=== PATIENT | male | born 1955 | race Caucasian/White ===

== ENCOUNTER 2017-06-15 06:04 | Day surgery (SDC) | payer MEDICARE, OTHER ==
[2017-06-15] VITALS (7 sets, daily range): BP systolic 131–147; BP diastolic 85–96; PULSE 57–71; RESP 16–20; TEMP 97.6–98.2; O2SAT 96–97
[~2017-06-15] VITALS: Ht 167.6 cm; Wt 63.6 kg
[2017-06-15] MEDS ORDERED: GABA300C5 PO (06:39)
[2017-06-15] MEDS ORDERED: SIMV40TA PO (06:39)
[2017-06-15] MEDS ORDERED: ZOLP10TA3 PO (06:39)
[2017-06-15] MEDS ORDERED: LEVO50TA4 PO (06:39)
[2017-06-15] MEDS ORDERED: PANC3600 PO (06:39)
[2017-06-15] MEDS ORDERED: LEVEMIR SQ (06:44)
[2017-06-15] MEDS ORDERED: NOVOLOGP2 SQ (06:44)
[2017-06-15 07:12] LABS: AUTOMATED NEUTROPHIL # 3.4 TH/MM3 (1.8-7.7); BASOPHIL # 0.1 TH/MM3 (0-0.2); BASOPHIL % 1.3 % (0.0-2.0); EOSINOPHIL # 1.1 TH/MM3 (0-0.4); EOSINOPHIL % 17.8 % (0.0-4.0); HEMO FLAGS DIFF FINAL; LYMPH % 19.8 % (9.0-44.0); LYMPHOCYTE # 1.2 TH/MM3 (1.0-4.8); MEAN CELL VOLUME 92.4 FL (80.0-100.0); MEAN CORPUSCULAR HEMOGLOBIN 29.8 PG (27.0-34.0); MEAN CORPUSCULAR HGB CONC 32.3 % (32.0-36.0); MONO % 6.5 % (0.0-8.0); NEUT % 54.6 % (16.0-70.0); PLATELET COUNT 478 TH/MM3 (150-450); RED BLOOD COUNT 4.22 MIL/MM3 (4.50-5.90); RED CELL DISTRIBUTION WIDTH 14.4 % (11.6-17.2); WHITE BLOOD COUNT 6.1 TH/MM3 (4.0-11.0)
[2017-06-15 07:15] LABS: APTT (PATIENT) 24.7 SEC (24.3-30.1); PROTHROMBIN TIME - PATIENT 10.8 SEC (9.8-11.6)
[2017-06-15] MEDS ORDERED: POVIDONE IODINE 5% (ANTISEPSIS KIT) 4 APPLICATIONS EACH NARE SCH (07:30)
[2017-06-15] MEDS ORDERED: ceFAZolin 2 GM PREMIX 50 ML - implanted port/tunneled catheter insertion IV SCH (07:30)
[2017-06-15] MEDS ORDERED: SODIUM CHLORIDE 0.9% 1000 ML IV SCH (07:30)
[2017-06-15] MEDS ORDERED: CHLORHEXIDINE GLUCONATE 2 % 1 PACK (2 CLOTHS) TOPICAL SCH (07:30)
[2017-06-15] MEDS ORDERED: VANCOMYCIN 1000 MG/NS 250 ML - implanted port/tunneled catheter IV SCH ×2 (07:30)
[2017-06-15] MEDS ORDERED: MIDAZOLAM HCL 5 MG/5 ML VIAL ONE (07:52)
--- NOTE | 2017-06-15 09:51 | PD.RAD ---
Post Procedure Progress Note Pre Procedure Diagnosis: (1) Pancreatic cancer Post Procedure Diagnosis: (1) Pancreatic cancer Procedure Date: Jun 15, 2017 Supervising Radiologist: Damion Bassett Proceduralist/Assist: Bg Chowdhury RT(R) Estimated blood loss: 10 ml Anesthesia: Local, Conscious Sedation Plan of Activity Patient to Unit: ROPU Patient Condition: Good See PACS Report for procedural detail/treatment Central Venous Access Device Procedure 1 Right Internal Jugular Infusaport Placement single lumen Turkish: 8 Damion Bassett MD Jun 15, 2017 09:51
[2017-06-15] MEDS ORDERED: SODIUM CHLORIDE 0.9% FLUSH 10 ML FLUSH IVF PRN (10:00)
--- NOTE | 2017-06-15 10:57 | RADRPT ---
EXAM DATE/TIME: 06/15/2017 08:22 [facility] COMPARISON: No previous studies available for comparison. INDICATIONS : Patient presents with Pancreatic cancer in need of port placement for chemotherapy treatment. MEDICAL HISTORY : Pancreatic cancer with mets Arthritis Diabetes Kidney stones. SURGICAL HISTORY : Appendectomy Cholecystectomy Hip surgery Pancreatectomy. ENCOUNTER: Initial ACUITY: 1 month PAIN SCORE: 0/10 LOCATION: N/A FLUORO TIME: 0.4 minutes IMAGE SERIES: 0 SEDATION TIME: 30 minutes ACCESS: Right internal jugular vein SEDATION: 1.) 3 mg midazolam (Versed) IV 2.) 150 mcg fentanyl (Sublimaze) IV Prophylactic antibiotics were administered with appropriate pre-procedure timing. Vancomycin within 2 hours of procedure, Ancef (or alternative) within 1 hour of procedure. DEVICE: 1. [address] Frisian single lumen Smart port ct w/vortex PROCEDURE : 1. Continuous pulse oximetry and EKG monitoring. 2. Intravenous conscious sedation. 3. Ultrasound guidance for venous access. 4. Fluoroscopic guided implantable central venous port placement. The patient was placed supine. The neck was prepped in sterile fashion. Full sterile technique was u sed, including cap, mask, sterile gloves and gown, and a large sterile sheet. Hand hygiene and 2% ch lorhexidine Betadine was utilized per protocol for cutaneous antisepsis with appropriate dry time for site. Sterile gel and sterile probe cover were utilized for ultrasound guidance. The skin and sub cutaneous tissues were infiltrated with local anesthetic solution. Under direct ultrasound guidance, central venous access was accomplished in the targeted vessel. The ultrasound images depicting access guidance were stored and saved to PACS for permanent record. A s ubcutaneous pocket was created using blunt dissection. The port was introduced to the pocket. The c atheter tubing was fed through a subcutaneous tunnel to the venotomy site. The catheter tubing was c ut to a suitable length and then was introduced through a valved Peel-Away sheath and positioned with catheter tubing tip at the cavo-atrial junction level. The pocket incision was closed with subcutic ular Vicryl suture. Steri-Strips were applied. The port was flushed and locked with heparin solutio n per protocol. Sterile dressing was applied to the site. The patient tolerated the procedure well. Conscious sedation was performed with the prescribed dosages and duration as above in the presence of an independent trained radiology nurse to assist in the monitoring of the patient. EKG and oximetry remained stable throughout the procedure. The patient tolerated the procedure well and there were no complications. The patient was sent to post anesthesia recovery in stable condition. CONCLUSION: Uncomplicated ultrasound and fluoroscopic guided implanted central venous port catheter placement as described in detail above. An 8 Frisian Power port was placed. Damion Bassett MD on June 15, 2017 at 10:56 Board Certified Radiologist. This report was verified electronically.
== END 2017-06-15 11:00 | disposition home or self-care (01) ==
LOC: HROP 06:04 → HRIP 06:07 → HROP 11:00
PROVIDERS: ATTEND Internal Medicine
DX: C25.9 Malignant neoplasm of pancreas, unspecified (principal); E11.9 Type 2 diabetes mellitus without complications; M19.90 Unspecified osteoarthritis, unspecified site; Z87.442 Personal history of urinary calculi; Z79.4 Long term (current) use of insulin; Z79.899 Other long term (current) drug therapy
CPT/HCPCS: 36561; 76937; 77001; 82948; 85025; 85610; 85730; 99152; 99153; C1788; J0690; J1642; J2250; J3010; J3370; J7030; J7050

== ENCOUNTER 2018-01-17 12:16 | Emergency (ER) | payer MEDICARE, OTHER ==
[~2018-01-17 12:16] MED LIST: GABA300C5 PO; LEVEMIR SQ; LEVO50TA4 PO; NOVOLOGP2 SQ; PANC3600 PO; SIMV40TA PO; ZOLP10TA3 PO
[2018-01-17 12:40] VITALS: BP 146/85; PULSE 68; RESP 20; TEMP 98.3; O2SAT 98
[2018-01-17 13:30] VITALS: BP 152/90; PULSE 54; RESP 16; O2SAT 98
[2018-01-17] MEDS ORDERED: SODIUM CHLORIDE 0.9% FLUSH 10 ML FLUSH IVF PRN (13:30)
--- NOTE | 2018-01-17 13:35 | PD ---
HPI Chief Complaint: Cardiac Complaint Time Seen by Provider: 13:14 Travel History International Travel<30 days: No Contact w/Intl Traveler<30days: No Traveled to known affect area: No History of Present Illness HPI 62-year-old male with a history of a Whipple procedure, single kidney, presents emergency department for evaluation of lower midsternal pain that began 45 minutes after eating breakfast today. Patient states that the sensation feels like "somebody is sitting on his chest". Says the pain initially was 5/6 out of 10 however now it is 4 out of 10. The patient states that the pain started about 930 this morning and is gradually improving. Denies radiation of pain. Says that he has had this sensation for approximately 2 weeks but finally decided to go to the hospital in [place] 1 week ago where he had a stress test, which was normal. Patient said he called his oncologist, Dr. Smith who recommended he come to the emergency department for evaluation. Patient states that he believes this may be a little bit of nerves. Says he had a similar episode last that occurred approximately 1 hour after eating. Again a previous episode occurred 2 hours after playing pickle ball 2 weeks ago. He denies any shortness of breath, dizziness, nausea, vomiting. Denies use of tobacco or alcohol. PFSH Past Medical History Cancer: Yes Cardiovascular Problems: No Diabetes: Yes Endocrine: No Hepatitis: No Hiatal Hernia: No Immune Disorder: No Musculoskeletal: No Psychiatric: Yes Reproductive: No Respiratory: No Thyroid Disease: Yes Past Surgical History Abdominal Surgery: Yes AICD: No Cardiac Surgery: No Endocrine Surgery: Yes (Pancreas) Genitourinary Surgery: No Gynecologic Surgery: No Joint Replacement: Yes Pacemaker: No Thoracic Surgery: No Social History Tobacco Use: No Allergies-Medications (Allergen,Severity, Reaction): Coded Allergies: promethazine (Verified Allergy, Unknown, 06/15/17) Reported Meds & Prescriptions Reported Meds & Active Scripts Active Pantoprazole (Pantoprazole Sodium) 20 Mg Tab 20 Mg PO DAILY 14 Days Reported Cozaar (Losartan Potassium) 100 Mg Tab 100 Mg PO HS Tresiba Flextouch Pen Inj (Insulin Degludec Inj) 300 unit/3 ML Pen 14 Units SQ DAILY Novolog Inj (Insulin Aspart) 1,000 Unit/10 Ml Vial SQ ACHS Inject 1 unit for every 15-20 carbs with meals & snacks Zolpidem (Zolpidem Tartrate) 10 Mg Tab 10 Mg PO HS PRN Creon (Pancrelipase) 36,000-114,000-180,000 Units Cap 1 Cap PO TIDPC Simvastatin 40 Mg Tab 40 Mg PO HS Levothyroxine (Levothyroxine Sodium) 50 Mcg Tab 50 Mcg PO DAILY Gabapentin 300 Mg Cap 300 Mg PO BID Review of Systems Except as stated in HPI: all other systems reviewed are Neg Physical Exam Narrative GENERAL: Well developed, well-nourished, thin male appears stated age in no acute distress SKIN: Focused skin assessment warm/dry. HEAD: Atraumatic. Normocephalic. EYES: Pupils equal and round. No scleral icterus. No injection or drainage. ENT: No nasal bleeding or discharge. Mucous membranes pink and moist. NECK: Trachea midline. No JVD. No lymphadenopathy CARDIOVASCULAR: Regular rate and rhythm. No murmur appreciated. RESPIRATORY: No accessory muscle use. Clear to auscultation. Breath sounds equal bilaterally. GASTROINTESTINAL: Abdomen soft, mildly tender to palpation in the lower sternal and upper epigastric region. No masses organomegaly. Midline scar well- healed. An insulin pump is attached to the right lower quadrant. No CVA tenderness. MUSCULOSKELETAL: No obvious deformities. No clubbing. No cyanosis. No edema. Chest pain not reproducible with pain NEUROLOGICAL: Awake and alert. No obvious cranial nerve deficits. Motor grossly within normal limits. Normal speech. PSYCHIATRIC: Appropriate mood and affect; insight and judgment normal. Data Data Last Documented VS Vital Signs Date Time Temp Pulse Resp B/P (MAP) Pulse Ox O2 Delivery O2 Flow Rate FiO2 01/17/18 15:25 51 18 152/86 (108) 99 01/17/18 13:13 Room Air 01/17/18 12:40 98.3 Orders Orders Electrocardiogram (01/17/18 ) Chest, Pa & Lat (01/17/18 ) Ckmb (Isoenzyme) Profile (01/17/18 13:28) Complete Blood Count With Diff (01/17/18 13:28) Comprehensive Metabolic Panel (01/17/18 13:28) D-Dimer (01/17/18 13:28) Magnesium (Mg) (01/17/18 13:28) Prothrombin Time / Inr (Pt) (01/17/18 13:28) Act Partial Throm Time (Ptt) (01/17/18 13:28) Troponin I (01/17/18 13:28) Lipase (01/17/18 13:28) Ecg Monitoring (01/17/18 13:28) Iv Access Insert/Monitor (01/17/18 13:28) Oximetry (01/17/18 13:28) Sodium Chloride 0.9% Flush (Ns Flush) (01/17/18 13:30) CKMB (01/17/18 13:39) CKMB% (01/17/18 13:39) Ed Discharge Order (01/17/18 14:55) Labs Laboratory Tests Test 01/17/18 13:39 White Blood Count 4.3 TH/MM3 Red Blood Count 4.19 MIL/MM3 Hemoglobin 13.0 GM/DL Hematocrit 39.9 % Mean Corpuscular Volume 95.3 FL Mean Corpuscular Hemoglobin 31.1 PG Mean Corpuscular Hemoglobin Concent 32.7 % Red Cell Distribution Width 16.7 % Platelet Count 313 TH/MM3 Mean Platelet Volume 8.8 FL Neutrophils (%) (Auto) 60.2 % Lymphocytes (%) (Auto) 24.0 % Monocytes (%) (Auto) 7.3 % Eosinophils (%) (Auto) 5.4 % Basophils (%) (Auto) 3.1 % Neutrophils # (Auto) 2.6 TH/MM3 Lymphocytes # (Auto) 1.0 TH/MM3 Monocytes # (Auto) 0.3 TH/MM3 Eosinophils # (Auto) 0.2 TH/MM3 Basophils # (Auto) 0.1 TH/MM3 CBC Comment DIFF FINAL Differential Comment Prothrombin Time 11.3 SEC Prothromb Time International Ratio 1.1 RATIO Activated Partial Thromboplast Time 25.4 SEC D-Dimer Quantitative (PE/DVT) 0.31 MG/L FEU Blood Urea Nitrogen 34 MG/DL Creatinine 0.84 MG/DL Random Glucose 91 MG/DL Total Protein 7.2 GM/DL Albumin 4.0 GM/DL Calcium Level 9.0 MG/DL Magnesium Level 2.2 MG/DL Alkaline Phosphatase 102 U/L Aspartate Amino Transf (AST/SGOT) 61 U/L Alanine Aminotransferase (ALT/SGPT) 84 U/L Total Bilirubin 0.7 MG/DL Sodium Level 138 MEQ/L Potassium Level 4.7 MEQ/L Chloride Level 103 MEQ/L Carbon Dioxide Level 28.0 MEQ/L Anion Gap 7 MEQ/L Estimat Glomerular Filtration Rate 92 ML/MIN Total Creatine Kinase 113 U/L Creatine Kinase MB 1.2 NG/ML Troponin I LESS THAN 0.02 NG/ML Lipase 22 U/L MDM Medical Decision Making Medical Screen Exam Complete: Yes Emergency Medical Condition: Yes Differential Diagnosis ACS, atypical chest pain, duodenitis, gastritis Narrative Course 62-year-old male with a history of a Whipple procedure, single kidney, presents emergency department for evaluation of lower midsternal pain that began 45 minutes after eating breakfast today. Patient states that the sensation feels like "somebody is sitting on his chest". Says the pain initially was 5/6 out of 10 however now it is 4 out of 10. The patient states that the pain started about 930 this morning and is gradually improving. Denies radiation of pain. Says that he has had this sensation for approximately 2 weeks but finally decided to go to the hospital in [place] 1 week ago where he had a stress test, which was normal. Patient said he called his oncologist, Dr. Smith who recommended he come to the emergency department for evaluation. Patient states that he believes this may be a little bit of nerves. Says he had a similar episode last that occurred approximately 1 hour after eating. Again a previous episode occurred 2 hours after playing pickle ball 2 weeks ago. He denies any shortness of breath, dizziness, nausea, vomiting. Denies use of tobacco or alcohol. Vital signs are stable. CBC & BMP Diagram 01/17/18 13:39 Total Protein 7.2, Albumin 4.0, Calcium Level 9.0, Magnesium Level 2.2, Alkaline Phosphatase 102, Aspartate Amino Transf (AST/SGOT) 61 H, Alanine Aminotransferase (ALT/SGPT) 84 H, Total Bilirubin 0.7 Cardiac enzymes negative. D-dimer 0.31. Last Impressions Chest X-Ray 01/17/18 0000 Signed Impressions: Service Date/Time: , January 17, 2018 13:49 - CONCLUSION: No acute disease. Biapical scarring. Prosper Art MD I discussed the findings with the patient and . Advised that since patient had a stress test 1 week ago which was normal, it is reassuring. Based off of history and physical, I am comfortable discharging this patient for outpatient follow-up with a gastrointestinal physician and measurement and verification engineer. As patient was leaving, says he had a fruit cup and about 30 minutes after he consumed this he began having similar pain. Patient agrees that his pain is actually gastritis. Patient will be discharged with pantoprazole. Says that he will be following up at the [facility] within the next week regarding his Whipple surgery. Diagnosis Primary Impression: Gastritis Qualified Codes: K29.60 - Other gastritis without bleeding Referrals: [facility] Additional Instructions: Avoid spicy foods or other foods that may cause your stomach pain. Avoid high acid foods to reduce your symptoms. Take medications daily. Scripts Pantoprazole (Pantoprazole) 20 Mg Tab 20 MG PO DAILY for Reflux for 14 Days, #14 TAB 0 Refills Prov: Jaimee Casey MD 01/17/18 Disposition: 01 DISCHARGE HOME Condition: Stable Kim Bryant Jan 17, 2018 13:35
[2018-01-17] MEDS ORDERED: INSU1INJ14 SQ (13:41)
[2018-01-17] MEDS ORDERED: COZA100T PO (13:41)
[2018-01-17 13:55] LABS: AUTOMATED NEUTROPHIL # 2.6 TH/MM3 (1.8-7.7); BASOPHIL # 0.1 TH/MM3 (0-0.2); BASOPHIL % 3.1 % (0.0-2.0); EOSINOPHIL # 0.2 TH/MM3 (0-0.4); EOSINOPHIL % 5.4 % (0.0-4.0); HEMATOCRIT 39.9 % (39.0-51.0); MEAN CELL VOLUME 95.3 FL (80.0-100.0); MEAN CORPUSCULAR HEMOGLOBIN 31.1 PG (27.0-34.0); MEAN CORPUSCULAR HGB CONC 32.7 % (32.0-36.0); MEAN PLATELET VOLUME 8.8 FL (7.0-11.0); MONO % 7.3 % (0.0-8.0); MONOCYTE # 0.3 TH/MM3 (0-0.9); NEUT % 60.2 % (16.0-70.0); PLATELET COUNT 313 TH/MM3 (150-450); RED BLOOD COUNT 4.19 MIL/MM3 (4.50-5.90); RED CELL DISTRIBUTION WIDTH 16.7 % (11.6-17.2); WHITE BLOOD COUNT 4.3 TH/MM3 (4.0-11.0)
--- NOTE | 2018-01-17 13:55 | RADRPT ---
EXAM DATE/TIME: 01/17/2018 13:49 [facility] COMPARISON: No previous studies available for comparison. INDICATIONS : Chest pain today. MEDICAL HISTORY : Hypertension. Cancer: Pancreatic, kidney, and duodonal. SURGICAL HISTORY : Appendectomy. Cholecystectomy. Left nephrectomy. Pancreatectomy. Infusaport. ENCOUNTER: Initial ACUITY: 1 day PAIN SCORE: 4/10 LOCATION: Bilateral chest FINDINGS: PA and lateral views of the chest demonstrate the lungs to be symmetrically aerated without evidence of mass, infiltrate or effusion. Biapical scarring. Right-sided port with tip in SVC. The cardiomedi astinal contours are unremarkable. Osseous structures are intact. CONCLUSION: No acute disease. Biapical scarring. Prosper Art MD on January 17, 2018 at 13:52 Board Certified Radiologist. This report was verified electronically.
[2018-01-17 14:02] LABS: D-DIMER 0.31 MG/L FEU (0.00-0.50); INTERNATIONAL NORMALIZED RATIO 1.1 RATIO; PROTHROMBIN TIME - PATIENT 11.3 SEC (9.8-11.6)
--- NOTE | 2018-01-17 14:05 | PD ---
Physical Exam Date Seen by Provider: Jan 17, 2018 Narrative Patient presents complaining with chest pain. He reports chest discomfort which generally starts after eating. He has had 3 episodes within the last couple of weeks. He was actually evaluated for this at a hospital in [place] about a week ago. He had a negative echo and a negative stress test. Labs were also reportedly normal. Data Data Last Documented VS Vital Signs Date Time Temp Pulse Resp B/P (MAP) Pulse Ox O2 Delivery O2 Flow Rate FiO2 01/17/18 12:40 98.3 68 20 146/85 (105) 98 Orders Orders Electrocardiogram (01/17/18 ) Chest, Pa & Lat (01/17/18 ) Electrocardiogram (01/17/18 13:28) Ckmb (Isoenzyme) Profile (01/17/18 13:28) Complete Blood Count With Diff (01/17/18 13:28) Comprehensive Metabolic Panel (01/17/18 13:28) D-Dimer (01/17/18 13:28) Magnesium (Mg) (01/17/18 13:28) Prothrombin Time / Inr (Pt) (01/17/18 13:28) Act Partial Throm Time (Ptt) (01/17/18 13:28) Troponin I (01/17/18 13:28) Lipase (01/17/18 13:28) Ecg Monitoring (01/17/18 13:28) Iv Access Insert/Monitor (01/17/18 13:28) Oximetry (01/17/18 13:28) Sodium Chloride 0.9% Flush (Ns Flush) (01/17/18 13:30) Urinalysis - C+S If Indicated (01/17/18 13:47) Labs Laboratory Tests Test 01/17/18 13:39 White Blood Count 4.3 TH/MM3 Red Blood Count 4.19 MIL/MM3 Hemoglobin 13.0 GM/DL Hematocrit 39.9 % Mean Corpuscular Volume 95.3 FL Mean Corpuscular Hemoglobin 31.1 PG Mean Corpuscular Hemoglobin Concent 32.7 % Red Cell Distribution Width 16.7 % Platelet Count 313 TH/MM3 Mean Platelet Volume 8.8 FL Neutrophils (%) (Auto) 60.2 % Lymphocytes (%) (Auto) 24.0 % Monocytes (%) (Auto) 7.3 % Eosinophils (%) (Auto) 5.4 % Basophils (%) (Auto) 3.1 % Neutrophils # (Auto) 2.6 TH/MM3 Lymphocytes # (Auto) 1.0 TH/MM3 Monocytes # (Auto) 0.3 TH/MM3 Eosinophils # (Auto) 0.2 TH/MM3 Basophils # (Auto) 0.1 TH/MM3 CBC Comment DIFF FINAL Differential Comment Prothrombin Time 11.3 SEC Prothromb Time International Ratio 1.1 RATIO Activated Partial Thromboplast Time 25.4 SEC D-Dimer Quantitative (PE/DVT) 0.31 MG/L FEU MDM Supervised Visit with JUAN RAMON: Yes Interpretation(s) EKG shows a normal sinus rhythm with no acute ischemic change Narrative Course I, Dr. Casey, have reviewed the advance practice practitioner's documentation and am in agreement, met with the patient face to face, made the diagnosis, and the medical decision making was done by me. *My assessment and Findings: Patient is awake and alert and does not appear to be in any distress. The plan is to do baseline cardiac labs. If these are normal, he will be discharged with the recommendation to follow-up with the precision instrument maker. Please see Kim Bryant PA-C's note for further details, lab and radiology results, final diagnosis and disposition. Condition: Stable Jaimee Casey MD Jan 17, 2018 14:05
[2018-01-17 14:08] LABS: ALT (GPT) 84 U/L (12-78); AST (GOT) 61 U/L (15-37); BLOOD UREA NITROGEN 34 MG/DL (7-18); CHLORIDE 103 MEQ/L (98-107); CREATININE 0.84 MG/DL (0.60-1.30); GLOMERULAR FILTRATION RATE 92 ML/MIN (>89); GLUCOSE,RANDOM 91 MG/DL (74-106); MAGNESIUM 2.2 MG/DL (1.5-2.5); SODIUM (NA) 138 MEQ/L (136-145)
[2018-01-17 14:13] LABS: ALKALINE PHOSPHATASE 102 U/L (45-117); TOTAL BILIRUBIN ADULT 0.7 MG/DL (0.2-1.0); TOTAL PROTEIN 7.2 GM/DL (6.4-8.2); TROPONIN I LESS THAN 0.02 NG/ML (0.02-0.05)
[2018-01-17] MEDS ORDERED: PANT20TA2 PO (14:54)
[2018-01-17 15:25] VITALS: BP 152/86
--- NOTE | 2018-01-19 09:22 | EKG ---
Date Performed: 01/17/2018 Time Performed: 13:02:20 PTAGE: 62 years EKG: SINUS BRADYCARDIA BORDERLINE ECG NO PREVIOUS TRACING DOCTOR: Chasity Juarez Interpretating Date/Time 01/19/2018 09:16:55
== END 2018-01-17 15:29 | disposition home or self-care (01) ==
LOC: NEPC 12:16
DX: K29.70 Gastritis, unspecified, without bleeding (principal); E11.9 Type 2 diabetes mellitus without complications
CPT/HCPCS: 71046; 80053; 82550; 82552; 83690; 83735; 84484; 85025; 85379; 85610; 85730; 93005; 99285

== ENCOUNTER 2018-07-30 12:43 | Inpatient (IN) ==
--- NOTE | 2018-07-30 13:17 | ED ---
HPI General Chief complaint: Fever Stated complaint: Fever Time Seen by Provider: 07/30/18 13:01 History of Present Illness HPI narrative: 63-year-old male with a history of hypertension, hypothyroidism, renal cell carcinoma stage IV status post left nephrectomy, locally advanced pancreatic adenocarcinoma status post Whipple procedure, status post adjuvant chemotherapy last dose November 2017, diabetes with insulin pump status post Whipple, presents to the ED for evaluation of fever. Patient states that this morning around 10 AM he was outside playing golf when he suddenly felt as though he had chills. States that he has felt feverish since then. States he called his oncologist office and they told him to come in for evaluation. States that he was feeling fine when he woke up this morning. States he has been feeling well overall recently. He did travel to the [facility] recently and returned 4 days ago, he drove and did not fly. He denies any chest pain, shortness of breath, abdominal pain, nausea, vomiting, diarrhea, shortness of breath, cough or cold symptoms, dysuria. His states that she started having a sore throat today but otherwise no other sick contacts. No other complaints. Related Data Home Medications Medication Instructions Recorded Confirmed gabapentin 300 mg PO TID 07/30/18 07/30/18 insulin pump cartridge 07/30/18 07/30/18 levothyroxine 50 mcg PO DAILY 07/30/18 07/30/18 gobbei-gjuwgjzo-okedheb [Creon] 1 cap PO QID 07/30/18 07/30/18 lorazepam [Ativan] 0.5 mg PO BID 07/30/18 07/30/18 simvastatin 40 mg PO QPM 07/30/18 07/30/18 Allergies Allergy/AdvReac Type Severity Reaction Status Date / Time promethazine Allergy Unknown Hives Verified 07/30/18 12:54 fentanyl Allergy Lethargy Verified 07/30/18 12:54 Review of Systems ROS: all other systems reviewed are negative PMFSH Social History Social History Second Hand Smoke Exposure: No Smoking Status: Never smoker How Often Do You Have a Drink Containing Alcohol: Never Recent Travel in [facility] within the Last 8 Weeks: No Recent Out of Country Travel within the Last 8 Weeks: No Immunization History Tetanus Immunization: <5 Years Exam Narrative Exam Narrative: GENERAL: Well-nourished and well-developed pleasant patient in no acute distress who is nontoxic appearing. SKIN: Warm and dry without any obvious rashes or lesions. HEAD: Normocephalic and atraumatic. EYES: No injection, drainage, or hyphema noted. PERRLA. EOMI. ENT: No nasal drainage noted. Oropharynx is clear and the TMs are normal with good landmarks. NECK: Supple and the trachea is midline. No lymphadenopathy is noted throughout the cervical chains. CARDIOVASCULAR: Regular rate and rhythm. RESPIRATORY: Breath sounds are equal bilaterally with no accessory muscle use, wheezing, rhonchi, or crackles. GASTROINTESTINAL: Abdomen is soft, non-tender, and nondistended. MUSCULOSKELETAL: No obvious deformities, swelling, cyanosis, or ecchymosis is present throughout the upper and lower extremities. Patient has full range of motion without any signs of neurovascular compromise. Distal pulses are 2+ throughout. NEUROLOGICAL: Awake, alert, and oriented. Normal speech and gait. Cranial nerves are grossly intact. Course Initial Documented Vital Signs Temperature 100.9 F H 07/30/18 12:47 Pulse Rate 92 H 07/30/18 12:47 Respiratory Rate 17 07/30/18 12:47 Blood Pressure 172/85 H 07/30/18 12:47 Pulse Oximetry 99 07/30/18 12:47 Last Documented Vital Signs Temperature 101 F H 07/30/18 14:15 Pulse Rate 92 H 07/30/18 12:47 Respiratory Rate 17 07/30/18 12:47 Blood Pressure 172/85 H 07/30/18 12:47 Pulse Oximetry 99 07/30/18 12:47 Medical Decision Making JUAN RAMON Attestation JUAN RAMON supervised visit: Yes Attestation: Patient presents to the emergency department with fever and chills times 2 hours. Patient has a history of cancer. He denies dysuria, cough, chest pain, shortness of breath, rash, no sick contacts, but reports chronic body aches. Patient was given Tylenol 650 mg p.o. in the ER as well as 1 g of vancomycin and 3.375 g IV Zosyn. Workup did not identify source for the fever the patient has been admitted to the hospitalist for further evaluation and management. MDM Narrative Medical decision making narrative: 63-year-old male presents to the ED for evaluation of fever. Patient has a fever of 100.9 F and is tachycardic with a heart rate of 92 bpm. Otherwise vital signs are unremarkable. Physical examination is essentially unremarkable. He has no complaints other than fever and chills. IV access is obtained, labs of been drawn and sent. Patient is placed on cardiac telemetry and pulse oximetry monitoring. Patient is significantly immunocompromised with a history of cancer and status post pancreatectomy with diabetes. Patient administered antibiotics vancomycin 1 g and Zosyn 4.5 g IV. CBC is unremarkable, he does have increased neutrophil count. CMP shows hyperkalemia with potassium 5.3, otherwise unremarkable. Urinalysis shows small occult blood, trace leukocyte esterase and few mucus. Chest x-ray is negative for any acute abnormalities. Influenza swab is negative. Of note, patient's temperature increased to 102 shortly after arrival to his room. Administered oral tylenol. Work up so far is negative however this immunocompromised patient with fever will be kept in observation with IV antibiotics. Medical Screen Exam Complete: Yes Emergency Medical Condition: Yes Differential Diagnosis Differential Diagnosis: Viral syndrome versus influenza versus sepsis Lab Data Result diagrams: 07/30/18 13:45 07/30/18 13:45 Lab Results 07/30/18 07/30/18 07/30/18 Range/Units 13:45 13:45 13:45 WBC 10.0 (4.0-11.0) th/mm3 RBC 4.22 L (4.50-5.90) mil/mm3 Hgb 13.5 (13.0-17.0) gm/dL Hct 39.4 (39.0-51.0) % MCV 93.3 (80.0-100.0) fL MCH 31.9 (27.0-34.0) pg MCHC 34.3 (32.0-36.0) % RDW 14.5 (11.6-17.2) % Plt Count 266 (150-450) th/mm3 MPV 8.4 (7.0-11.0) fL Neut % (Auto) 91.5 H (16.0-70.0) % Lymph % (Auto) 4.1 L (9.0-44.0) % [place] % (Auto) 3.3 (0.0-8.0) % Eos % (Auto) 0.3 (0.0-4.0) % Baso % (Auto) 0.8 (0.0-2.0) % Neut # (Auto) 9.2 H (1.8-7.7) th/mm3 Lymph # (Auto) 0.4 L (1.0-4.8) th/mm3 [place] # (Auto) 0.3 (0.0-0.9) th/mm3 Eos # (Auto) 0.0 (0.0-0.4) th/mm3 Baso # (Auto) 0.1 (0.0-0.2) th/mm3 WBC Differential . Differential Comment Auto diff final Sodium 136 (136-145) meq/L Potassium 5.3 H (3.5-5.1) meq/L Chloride 100 (98-107) meq/L Carbon Dioxide 27.4 (21.0-32.0) meq/L Anion Gap 9 (5-15) meq/L BUN 34 H (7-18) mg/dL Creatinine 1.12 (0.60-1.30) mg/dL Estimated GFR 66 L (>89) mL/min Random Glucose 163 H (74-106) mg/dL Lactic Acid 1.0 (0.4-2.0) mmol/L Calcium 8.8 (8.5-10.1) mg/dL Total Bilirubin 1.4 H (0.2-1.0) mg/dL AST 45 H (15-37) U/L ALT 57 (12-78) U/L Alkaline Phosphatase 105 (45-117) U/L Total Protein 7.2 (6.4-8.2) g/dL Albumin 3.8 (3.4-5.0) g/dL Urine Color (Yellw/Straw) Urine Clarity (Clear) Urine pH (5.0-8.5) Ur Specific Lillian (1.002-1.035) Urine Protein (Neg-Trace) mg/dL Urine Glucose (UA) (Negative) mg/dL Urine Ketones (Negative) mg/dL Urine Occult Blood (Negative) Urine Nitrate (Negative) Urine Bilirubin (Negative) Urine Urobilinogen (Less than 2) mg/dL Ur Leukocyte Esterase (Negative) Urine RBC (0-3) /hpf Urine WBC (0-5) /hpf Ur Squamous Epith Cells (0-5) /hpf Urine Mucus (Occasional) /lpf Micro UA Comment Ur Microscopic Review Urine Culture Comments 07/30/18 Range/Units 13:45 WBC (4.0-11.0) th/mm3 RBC (4.50-5.90) mil/mm3 Hgb (13.0-17.0) gm/dL Hct (39.0-51.0) % MCV (80.0-100.0) fL MCH (27.0-34.0) pg MCHC (32.0-36.0) % RDW (11.6-17.2) % Plt Count (150-450) th/mm3 MPV (7.0-11.0) fL Neut % (Auto) (16.0-70.0) % Lymph % (Auto) (9.0-44.0) % [place] % (Auto) (0.0-8.0) % Eos % (Auto) (0.0-4.0) % Baso % (Auto) (0.0-2.0) % Neut # (Auto) (1.8-7.7) th/mm3 Lymph # (Auto) (1.0-4.8) th/mm3 [place] # (Auto) (0.0-0.9) th/mm3 Eos # (Auto) (0.0-0.4) th/mm3 Baso # (Auto) (0.0-0.2) th/mm3 WBC Differential Differential Comment Sodium (136-145) meq/L Potassium (3.5-5.1) meq/L Chloride (98-107) meq/L Carbon Dioxide (21.0-32.0) meq/L Anion Gap (5-15) meq/L BUN (7-18) mg/dL Creatinine (0.60-1.30) mg/dL Estimated GFR (>89) mL/min Random Glucose (74-106) mg/dL Lactic Acid (0.4-2.0) mmol/L Calcium (8.5-10.1) mg/dL Total Bilirubin (0.2-1.0) mg/dL AST (15-37) U/L ALT (12-78) U/L Alkaline Phosphatase (45-117) U/L Total Protein (6.4-8.2) g/dL Albumin (3.4-5.0) g/dL Urine Color Straw (Yellw/Straw) Urine Clarity Clear (Clear) Urine pH 7.0 (5.0-8.5) Ur Specific Lillian 1.008 (1.002-1.035) Urine Protein Negative (Neg-Trace) mg/dL Urine Glucose (UA) Negative (Negative) mg/dL Urine Ketones Negative (Negative) mg/dL Urine Occult Blood Small H (Negative) Urine Nitrate Negative (Negative) Urine Bilirubin Negative (Negative) Urine Urobilinogen Less than 2 (Less than 2) mg/dL Ur Leukocyte Esterase Trace H (Negative) Urine RBC 3 (0-3) /hpf Urine WBC 2 (0-5) /hpf Ur Squamous Epith Cells <1 (0-5) /hpf Urine Mucus Few H (Occasional) /lpf Micro UA Comment Culture not ind Ur Microscopic Review Not Reportable Urine Culture Comments Culture not ind Imaging Data Radiologist's impression: Chest X-Ray 07/30/18 13:14 CONCLUSION: Right IJ Honhu[place]-o-Fdkv catheter. Lungs are clear. Discharge Plan Discharge Disposition Patient Disposition: 30 Still Patient Discharge Details Diagnosis: SIRS (systemic inflammatory response syndrome) Physicians Team ED Provider: Sameera Meza ED Midlevel Provider: Olga Santizo Primary Care Provider: Rajani Suggs Attending Provider: Lety Key Status ED Status: Admitted Patient
[2018-07-30] MEDS ORDERED: Piperacil/Tazo 4.5 GM Premix 4.5 GM/100 ML BAG IV.SIG ONE (13:21)
[2018-07-30] MEDS ORDERED: Vancomycin Inj 1 GM/200 ML PIGGYBACK IV.SIG ONE (13:21)
[2018-07-30] MEDS ORDERED: Acetaminophen 325 MG Tablet PO ONE (13:33)
[2018-07-30] MEDS ORDERED: Vancomycin Inj 1,000 MG in Sodium Chlor 0.9% Inj 250 ML IV.SIG ONE (13:45)
[2018-07-30 14:05] LABS: Baso # (Auto) 0.1 th/mm3 (0.0-0.2); Baso % (Auto) 0.8 % (0.0-2.0); Eos % (Auto) 0.3 % (0.0-4.0); Hematocrit 39.4 % (39.0-51.0); Hemoglobin 13.5 gm/dL (13.0-17.0); Lymph # (Auto) 0.4 th/mm3 (1.0-4.8); Lymph % (Auto) 4.1 % (9.0-44.0); Mean Corpuscular HGB Conc 34.3 % (32.0-36.0); Mean Corpuscular Hemoglobin 31.9 pg (27.0-34.0); Mean Corpuscular Volume 93.3 fL (80.0-100.0); Mean Platelet Volume 8.4 fL (7.0-11.0); Mono # (Auto) 0.3 th/mm3 (0.0-0.9); Mono % (Auto) 3.3 % (0.0-8.0); Neut # (Auto) 9.2 th/mm3 (1.8-7.7); Neut % (Auto) 91.5 % (16.0-70.0); Platelet Count 266 th/mm3 (150-450); Red Blood Count 4.22 mil/mm3 (4.50-5.90); Red Cell Distribution Width 14.5 % (11.6-17.2)
[2018-07-30 14:18] LABS: Bilirubin,Urine Negative (Negative); Clarity,Urine Clear (Clear); Color,Urine Straw (Yellw/Straw); Glucose,Urine (UA) Negative (Negative); Leukocyte Esterase,Urine Trace (Negative); Mucus,Urine Few /lpf (Occasional); Nitrite,Urine Negative (Negative); Specific Gravity,Urine 1.008 (1.002-1.035); Squamous Epithelial Cell,Urine <1 /hpf (0-5)
[2018-07-30 14:24] LABS: Albumin 3.8 g/dL (3.4-5.0); Anion Gap 9 meq/L (5-15); Aspartate Aminotransferase 45 U/L (15-37); Blood Urea Nitrogen 34 mg/dL (7-18); Calcium 8.8 mg/dL (8.5-10.1); Carbon Dioxide 27.4 meq/L (21.0-32.0); Chloride 100 meq/L (98-107); Glomerular Filtration Rate 66 mL/min (>89); Glucose,Random 163 mg/dL (74-106); Potassium 5.3 meq/L (3.5-5.1); Sodium 136 meq/L (136-145)
--- NOTE | 2018-07-30 14:24 | XR ---
EXAM DATE: 07/30/2018 2:10 PM EDT AGE/SEX: 63 years / Male INDICATIONS: Fever. CLINICAL DATA: This is the patient's initial encounter. Patient reports that signs and symptoms have been present for 1 day and indicates a pain score of 6/10. MEDICAL/SURGICAL HISTORY: Carcinoma, pancreas. Arthritis. Diabetes. Appendectomy. Cholecyste ctomy. COMPARISON: [facility], CHEST PA & LAT, 01/17/2018. . FINDINGS: A single AP view of the chest demonstrates the lungs to be symmetrically aerated without evidence of mass, infiltrate or effusion. The cardiomediastinal contours are unremarkable. Osseous structures a re intact. CONCLUSION: Right IJ Rxuswh-k-Nkgv catheter. Lungs are clear. Electronically signed by: Kushal Corral MD 07/30/2018 2:22 PM EDT
[2018-07-30 14:27] LABS: Alanine Aminotransferase 57 U/L (12-78); Alkaline Phosphatase 105 U/L (45-117); Total Protein 7.2 g/dL (6.4-8.2)
[2018-07-30] MEDS ORDERED: Acetaminophen 325 MG Tablet PO PRN (15:53)
--- NOTE | 2018-07-30 15:55 | P.HPIM ---
History of Present Illness Primary Care Physician: Rajani Suggs MD History of Present Illness: This patient is a 63-year-old male with a diagnosis of hypertension, hypothyroidism, renal cell carcinoma stage IV status post left nephrectomy, locally advanced pancreatic adenocarcinoma status post Whipple procedure, status post adjuvant chemotherapy last dose was November 2017. Patient also has diagnosis of diabetes after the Whipple's procedure which is managed by an insulin pump. The patient said he was out in the [place] and playing golf outside over the past few days and was feeling fine however today he began to feel weak and had fevers and chills. He denies having a cough, denies dysuria, no diarrhea, denies any known recent sick contacts. Given the patient's history he came into the emergency department for evaluation and care after having fevers. Past medical history hypertension, hypothyroidism, renal cell carcinoma stage IV status post left nephrectomy, locally advanced pancreatic adenocarcinoma status post Whipple procedure, status post adjuvant chemotherapy last dose November 2017. Diabetes diagnosed after the Whipple's procedure. Surgical history left nephrectomy, status post Whipple's procedure, patient has also had a left hip replacement as well as a surgery on his right knee in the past. Social history patient denies any history of tobacco use, no significant history of alcohol abuse. Family history noncontributory Review of Systems All other systems reviewed negative except as stated in HPI PMFSH - History History Provided By: Patient - Tobacco History Second Hand Smoke Exposure: No Tobacco Use In Past 30 Days: No Smoking Status: Never smoker - Alcohol History How Often Do You Have a Drink Containing Alcohol: Never - Travel History Recent Travel in the [place] Within the Last 8 Weeks: No Recent Travel Out of the Country Within the Last 8 Weeks: No - Immunization History Tetanus Immunization: <5 Years Medications and Allergies Active Medications: Active Medications Lipase/Protease/Amylase (Veena Ferrari 03/19/30) 1 cap PO QID THANG Atorvastatin Calcium (Lipitor) 20 mg PO HS THANG Gabapentin (Neurontin) 300 mg PO TID THANG Vancomycin HCl 1,000 mg/ (Sodium Chloride) 250 mls @ 250 mls/hr IV.SIG Q24H THANG Piperacillin/Tazobactam/Dextrose (Zosyn 3.375 Gm Premix) 50 mls @ 100 mls/hr IV.SIG Q6H THANG Levothyroxine Sodium (Synthroid) 50 mcg PO DAILY@0600 THANG Sodium Chloride (Ns Flush) 2 ml IV.FLUSH PRN PRN PRN Reason: FLUSH AFTER USING IV ACCESS Last Admin: 07/30/18 14:09 Dose: 2 ml Allergies Allergy/AdvReac Type Severity Reaction Status Date / Time promethazine Allergy Unknown Hives Verified 07/30/18 12:54 fentanyl Allergy Lethargy Verified 07/30/18 12:54 Home Medications Medication Instructions Recorded Confirmed Type gabapentin 300 mg PO TID 07/30/18 07/30/18 History insulin pump cartridge 07/30/18 07/30/18 History levothyroxine 50 mcg PO DAILY 07/30/18 07/30/18 History smykpz-jebsobny-hnuzpwy [Creon] 1 cap PO QID 07/30/18 07/30/18 History lorazepam [Ativan] 0.5 mg PO BID 07/30/18 07/30/18 History simvastatin 40 mg PO QPM 07/30/18 07/30/18 History Exam Vital signs: Vital Signs 07/30/18 12:47 07/30/18 13:05 07/30/18 14:15 Temperature 100.9 F H 103.1 F H 101 F H Pulse Rate 92 H Respiratory Rate 17 Blood Pressure 172/85 H Pulse Oximetry 99 Intake & Output 07/29/18 07/30/18 07/30/18 18:59 06:59 18:59 Intake Total 350 / 350 Balance 350 / 350 Weight 61.235 kg Intake: IV 350 / 350 Zosyn 4.5 GM Premix 4.5 gm In 100 / 100 100 ml @ 200 mls/hr IV.SIG ONCE ONE Rx#:[id number] Vancomycin Inj 1,000 MG In NS 250 / 250 Inj 250 ML @ 250 mls/hr IV.SIG ONCE ONE Rx#:[id number] Narrative: General patient in no acute distress HEENT extraocular movements are intact, clear oropharyngeal mucosa, no JVD Cardiovascular S1-S2 audible, RRR, right-sided Port-A-Cath in place. Respiratory clear to auscultation bilaterally Abdomen soft, nontender, nondistended, normal bowel sounds Extremities no edema 2+ distal pulses in bilateral upper and lower extremities Neuro cranial nerves II through XII intact Results - Labs CBC & Chem 7: 07/30/18 13:45 07/30/18 13:45 Labs: Short CBC 07/30/18 Range/Units 13:45 WBC 10.0 (4.0-11.0) th/mm3 Hgb 13.5 (13.0-17.0) gm/dL Hct 39.4 (39.0-51.0) % Plt Count 266 (150-450) th/mm3 BMP 07/30/18 13:45 Sodium 136 Potassium 5.3 H Chloride 100 Carbon Dioxide 27.4 BUN 34 H Creatinine 1.12 Calcium 8.8 Liver Function 07/30/18 Range/Units 13:45 Total Bilirubin 1.4 H (0.2-1.0) mg/dL AST 45 H (15-37) U/L ALT 57 (12-78) U/L Alkaline Phosphatase 105 (45-117) U/L Albumin 3.8 (3.4-5.0) g/dL Urine 07/30/18 Range/Units 13:45 Urine Color Straw (Yellw/Straw) Urine Clarity Clear (Clear) Urine pH 7.0 (5.0-8.5) Ur Specific Bow 1.008 (1.002-1.035) Urine Protein Negative (Neg-Trace) mg/dL Urine Glucose (UA) Negative (Negative) mg/dL - Imaging Impressions Chest X-Ray 07/30/18 13:14 CONCLUSION: Right IJ Ybbmps-h-Sfsc catheter. Lungs are clear. Caprini VTE Risk Assessment Caprini VTE Risk Assessment: Moderate/High Risk (score >= 2) Caprini Risk Assessment Model: Point Value = 1 Point Value = 2 Point Value = 3 Point Value = 5 Age 41-60 Minor surgery BMI > 25 kg/m2 Swollen legs Varicose veins or History of unexplained or recurrent spontaneous Oral contraceptives or hormone replacement Sepsis (< 1 month) Serious lung disease, including pneumonia (< 1 month) Abnormal pulmonary function Acute myocardial infarction Congestive heart failure (< 1 month) History of inflammatory bowel disease Medical patient at bed rest Age 61-74 Arthroscopic surgery Major open surgery (> 45 min) Laparoscopic surgery (> 45 min) Malignancy Confined to bed (> 72 hours) Immobilizing plaster cast Central venous access Age >= 75 History of VTE Family history of VTE Factor V Leiden Prothrombin [id number] Lupus anticoagulant Anticardiolipin antibodies Elevated serum homocysteine Heparin-induced thrombocytopenia Other congenital or acquired thrombophilia Stroke (< 1 month) Elective arthroplasty Hip, pelvis, or leg fracture Acute spinal cord injury (< 1 month) Prophylaxis Regimen: Total Risk Factor Score Risk Level Prophylaxis Regimen 0-1 Low Early ambulation 2 Moderate Order ONE of the following: *Sequential Compression Device (SCD) *Heparin 5000 units SQ BID 3-4 Higher Order ONE of the following medications: *Heparin 5000 units SQ TID *Enoxaparin/Lovenox 40 mg SQ daily (WT < 150 kg, CrCl > 30 mL/min) *Enoxaparin/Lovenox 30 mg SQ daily (WT < 150 kg, CrCl > 10-29 mL/min) *Enoxaparin/Lovenox 30 mg SQ BID (WT < 150 kg, CrCl > 30 mL/min) AND/OR *Sequential Compression Device (SCD) 5 or more Highest Order ONE of the following medications: *Heparin 5000 units SQ TID (Preferred with Epidurals) *Enoxaparin/Lovenox 40 mg SQ daily (WT < 150 kg, CrCl > 30 mL/min) *Enoxaparin/Lovenox 30 mg SQ daily (WT < 150 kg, CrCl > 10-29 mL/min) *Enoxaparin/Lovenox 30 mg SQ BID (WT < 150 kg, CrCl > 30 mL/min) AND *Sequential Compression Device (SCD) Assessment and Plan - Plan This patient is a 63-year-old male with a diagnosis of hypertension, hypothyroidism, renal cell carcinoma stage IV status post left nephrectomy, locally advanced pancreatic adenocarcinoma status post Whipple procedure, status post adjuvant chemotherapy last dose was November 2017. Patient also has diagnosis of diabetes after the Whipple's procedure which is managed by an insulin pump. The patient said he was out in the [place] and playing golf outside over the past few days and was feeling fine however today he began to feel weak and had fevers and chills. 1. Systemic inflammatory response syndrome concern for sepsis The patient presented with the symptoms mentioned above. Labs show a WBC count of 10 however predominantly neutrophils. Patient had a fever in the emergency department of 103. Sepsis protocol was initiated, blood cultures were drawn. UA is negative, patient does not have any dysuria, chest x-ray is negative. No clear source of infection. Blood cultures will be followed up. Patient received vancomycin and Zosyn in the emergency department. We will continue IV antibiotics. He will be started on IV fluids. Influenza swab was negative. 2. Diabetes status post Whipple procedure Patient has an insulin pump which he manages on his own. Patient states that during his last hospitalization he managed the insulin pump on his own with communication with the nurses and physicians. 3. Hypothyroidism Continue Levoxyl 4. Hypertension The patient is not taking medication at home for hypertension. We will continue to monitor the patient's blood pressure and if it remains elevated he will be started on blood pressure medications. 5. Hyperkalemia Slight elevation patient serum potassium level. I will repeat a BMP and if it is still continuously elevated will be given treatment. DVT prophylaxis, heparin for DVT prophylaxis.
[2018-07-30] MEDS ORDERED: Sodium Chloride 0.9% 2 ML Flush PRN IV.FLUSH (16:24)
[2018-07-30] MEDS: Sod Chloride 0.9% Inj 1,000 ML IV.CONT SCH (17:15)
[2018-07-30] MEDS: amLODIPine 10 MG Tablet PO SCH (18:06)
[2018-07-30] MEDS: Gabapentin 300 MG Capsule PO SCH (18:56)
[2018-07-30] MEDS: [UNRECOGNIZED DRUG - REMARK] PO SCH ×2 (19:30→21:18)
[2018-07-30] MEDS: Piperacil/Tazo 3.375 GM Premix 50 ML IV.SIG SCH (21:18)
[2018-07-30] MEDS: Sodium Chloride 0.9% 2 ML Flush BID IV.FLUSH SCH (21:24)
[2018-07-30] MEDS: Heparin - SQ 10,000 UNITS/ML Vial SQ SCH (21:27)
[2018-07-30] MEDS ORDERED: Butalbital/APAP/Caff 50/325/40 MG Tablet PO ONE (23:02)
[2018-07-31] MEDS: Sod Chloride 0.9% Inj 1,000 ML IV.CONT SCH ×3 (00:31→16:24)
[2018-07-31] MEDS: Piperacil/Tazo 3.375 GM Premix 50 ML IV.SIG SCH ×4 (02:35→22:27)
[2018-07-31] MEDS: Levothyroxine 50 MCG Tablet PO SCH (05:48)
[2018-07-31] MEDS ORDERED: Ibuprofen 400 MG Tablet PO PRN (07:26)
[2018-07-31] MEDS: Gabapentin 300 MG Capsule PO SCH ×3 (08:36→18:10)
[2018-07-31] MEDS: [UNRECOGNIZED DRUG - REMARK] PO SCH (08:37)
[2018-07-31] MEDS: amLODIPine 10 MG Tablet PO SCH (08:37)
[2018-07-31] MEDS: LORazepam 0.5 MG Tablet PO SCH ×2 (08:37→22:28)
[2018-07-31] MEDS: Heparin - SQ 10,000 UNITS/ML Vial SQ SCH ×2 (08:39→22:26)
[2018-07-31] MEDS: Sodium Chloride 0.9% 2 ML Flush BID IV.FLUSH SCH ×2 (08:40→22:28)
[2018-07-31] MEDS ORDERED: Influenza (Quadrivalent) Vaccine 0.5 ML Syringe IM ONE (08:45)
[2018-07-31] MEDS: Lipase/Protease/Amylase 12/38/60 DR Capsule PO SCH ×4 (08:48→22:28)
[2018-07-31 10:21] LABS: Baso # (Auto) 0.1 th/mm3 (0.0-0.2); Baso % (Auto) 1.1 % (0.0-2.0); Eos % (Auto) 0.3 % (0.0-4.0); Hematocrit 39.4 % (39.0-51.0); Hemoglobin 13.5 gm/dL (13.0-17.0); Lymph # (Auto) 0.8 th/mm3 (1.0-4.8); Lymph % (Auto) 14.5 % (9.0-44.0); Mean Corpuscular HGB Conc 34.2 % (32.0-36.0); Mean Corpuscular Hemoglobin 32.1 pg (27.0-34.0); Mean Platelet Volume 8.6 fL (7.0-11.0); Mono # (Auto) 0.3 th/mm3 (0.0-0.9); Mono % (Auto) 6.2 % (0.0-8.0); Neut # (Auto) 4.2 th/mm3 (1.8-7.7); Neut % (Auto) 77.9 % (16.0-70.0); Platelet Count 240 th/mm3 (150-450); Red Blood Count 4.19 mil/mm3 (4.50-5.90); Red Cell Distribution Width 14.8 % (11.6-17.2); White Blood Count 5.4 th/mm3 (4.0-11.0)
[2018-07-31 10:56] LABS: Calcium 8.7 mg/dL (8.5-10.1); Carbon Dioxide 25.6 meq/L (21.0-32.0); Magnesium 2.2 mg/dL (1.5-2.5); Potassium 3.9 meq/L (3.5-5.1)
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
[2018-07-31] MEDS ORDERED: Diatrizoate Meglum/Diatrizoate Sod Liq 9 ML UDC PO ONE ×3 (13:40→20:15)
[2018-07-31] MEDS: Vancomycin Inj 1,000 MG in Sodium Chlor 0.9% Inj 250 ML IV.SIG SCH (16:24)
--- NOTE | 2018-08-01 00:43 | CT ---
EXAM DATE: 08/01/2018 12:27 AM EDT AGE/SEX: 63 years / Male INDICATIONS: Abdominal pain. CLINICAL DATA: This is the patient's initial encounter. Patient reports that signs and symptoms have been present for 1 day and indicates a pain score of 1/10. MEDICAL/SURGICAL HISTORY: None. . Left nephrectomy. Whipple surgery. ORAL CONTRAST: Prescribed oral contrast ingested. RADIATION DOSE: 6.64 CTDI (mGy) COMPARISON: [facility], CT ABDOMEN AND PELVIS W/O CONTRAST, 07/09/2015. . TECHNIQUE: Multiple contiguous axial images were obtained through the abdomen and pelvis following b olus infusion of 77 ml Omnipaque 350 (iohexol) nonionic water-soluble contrast as a single exam dos e. Prescribed oral contrast ingested. Using automated exposure control and adjustment of the mA and/ or kV according to patient size, radiation dose was kept as low as reasonably achievable to obtain op timal diagnostic quality images. DICOM format image data is available electronically for review and comparison. FINDINGS: Pancreaticoduodenectomy changes are noted. The body and tail remnant of the pancreas is atrophic and with diffuse ductal dilatation. The common bile duct is also distended at approximately 1 cm. No well -defined or measurable mass. Wall thickening and mural and mucosal enhancement seen of the stomach and proximal jejunum. The jejun al inflammatory changes are most severe above the anastomosis but some of the loops distal to the lilliam stomosis are also involved. I don't see an associated obstruction. No abscess or free air seen. No focal hepatic lesion. I don't see a spleen adrenal glands are within normal limits. Left kidney carrillo rgically absent. A few small cysts are seen of the right kidney. There is also a 3 mm nonobstructing stone of the mid zone. Moderate stool throughout the colon. CONCLUSION: 1. Surgical changes of previous Whipple procedure. There is atrophy and ductal dilatation of the bowman creatic remnant and also mild dilatation of the common bile duct. These findings may be residual rath er than acute. No well-defined/measurable mass seen. I also don't see any convincing evidence of meta static disease. 2. Apparent gastritis and jejunitis, nonspecific but presumably infectious or inflammatory. Inflamma tory changes include the anastomosis. No associated obstruction. 3. Left nephrectomy without recurrent mass. Also an apparent previous splenectomy. 4. Nonobstructing stone and small, benign-appearing cysts of the right kidney. Electronically signed by: Damion Saenz MD 08/01/2018 12:42 AM EDT
[2018-08-01] MEDS: Sod Chloride 0.9% Inj 1,000 ML IV.CONT SCH ×3 (01:12→16:41)
[2018-08-01] MEDS: Piperacil/Tazo 3.375 GM Premix 50 ML IV.SIG SCH ×4 (01:12→21:06)
[2018-08-01] MEDS: Levothyroxine 50 MCG Tablet PO SCH (05:30)
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
[2018-08-01] MEDS: Lipase/Protease/Amylase 12/38/60 DR Capsule PO SCH ×4 (09:41→21:07)
[2018-08-01] MEDS: LORazepam 0.5 MG Tablet PO SCH ×2 (09:47→21:07)
[2018-08-01] MEDS: Heparin - SQ 10,000 UNITS/ML Vial SQ SCH ×2 (09:48→21:06)
[2018-08-01] MEDS: amLODIPine 10 MG Tablet PO SCH (09:48)
[2018-08-01] MEDS: Gabapentin 300 MG Capsule PO SCH ×3 (09:48→17:09)
[2018-08-01] MEDS: Sodium Chloride 0.9% 2 ML Flush BID IV.FLUSH SCH ×2 (09:49→21:05)
[2018-08-01 13:05] LABS: Calcium 8.3 mg/dL (8.5-10.1); Potassium 3.8 meq/L (3.5-5.1)
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
[2018-08-01] MEDS: Vancomycin Inj 1,000 MG in Sodium Chlor 0.9% Inj 250 ML IV.SIG SCH (17:09)
[2018-08-02] MEDS: Piperacil/Tazo 3.375 GM Premix 50 ML IV.SIG SCH ×2 (01:29→08:55)
[2018-08-02] MEDS: Levothyroxine 50 MCG Tablet PO SCH (06:36)
[2018-08-02] MEDS: LORazepam 0.5 MG Tablet PO SCH (08:55)
[2018-08-02] MEDS: amLODIPine 10 MG Tablet PO SCH (08:55)
[2018-08-02] MEDS: Gabapentin 300 MG Capsule PO SCH ×2 (08:55→12:20)
[2018-08-02] MEDS: Sodium Chloride 0.9% 2 ML Flush BID IV.FLUSH SCH (08:56)
[2018-08-02] MEDS: Lipase/Protease/Amylase 12/38/60 DR Capsule PO SCH ×2 (09:07→12:10)
[2018-08-02 09:32] LABS: Calcium 8.5 mg/dL (8.5-10.1); Carbon Dioxide 27.1 meq/L (21.0-32.0); Total Protein 6.3 g/dL (6.4-8.2)
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
[2018-08-02] MEDS: Heparin - SQ 10,000 UNITS/ML Vial SQ SCH (12:08)
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
[2018-08-02 13:40] LABS: Activated Partial Thrombo Time 26.4 sec (23.4-31.7); Prothrombin Time 10.5 sec (9.8-11.6)
[2018-08-02] MEDS ORDERED: Lidocaine 1%/Epinephrine 1:100,000 Inj 30 ML Vial ONE (13:42)
--- NOTE | 2018-08-02 14:52 | P.RAD ---
Post Procedure Progress Note - Procedure Information Procedure Date: 08/02/18 Supervising Radiologist: MODESTO Rich Assisting Physician: Michael Locke Estimated blood loss (mL): 2 Anesthesia: Local - Plan of Activity Patient to Unit: Other Patient Condition: Good See PACS Report for procedural detail/treatment.
[2018-08-02] MEDS ORDERED: levoFLOXacin 750 MG Tablet PO SCH (15:00)
--- NOTE | 2018-08-02 16:15 | IR ---
EXAM DATE: 08/02/2018 2:46 PM EDT AGE/SEX: 63 years / Male INDICATIONS: Patient presents with port and has a fever and chills here for removal. CLINICAL DATA: This is the patient's initial encounter. Patient reports that signs and symptoms have been present for 2 days and indicates a pain score of 0/10. MEDICAL/SURGICAL HISTORY: Hypertension. Hypothyroidism. Renal cell carcinoma, Pancreatic carci noma Nephrectomy, left. COMPARISON: No prior exams available for comparison. IMAGE SERIES: ACCESS SITE: MEDICATION(S): 2mg lorazepam (Ativan) IV . . PROCEDURE : 1. PermaCath removal. 2. Fluoroscopic guidance. The risks, benefits and alternatives to the procedure were explained and verbal and written consent w as obtained. The site was prepped in sterile fashion. Full sterile technique was used, including ca p, mask, sterile gloves and gown and a large sterile sheet. Hand hygiene and 2% chlorhexidine and/or betadine/alcohol prep was utilized per protocol for cutaneous antisepsis. The skin and subcutaneous tissues were infiltrated with local anesthetic solution. The tract was anesthetized with 1% Lidocain e using fluoroscopic guidance. The Permcath was dissected from the subcutaneous tissues and easily removed in one piece. Manual pre ssure was applied to the venotomy site until hemostasis was obtained. Sterile dressing was applied. The patient tolerated the procedure well and there were no complications. CONCLUSION: 1. Uncomplicated Permcath removal. Electronically signed by: Michael Locke MD 08/02/2018 4:14 PM EDT
--- NOTE | 2018-08-02 16:41 | P.DS ---
Date of admission: 07/31/18 14:20 Primary care physician: Rajani Suggs MD Attending physician on discharge: Nataliya Jain Anticipated date of discharge: 08/02/18 Brief History from admission: This patient is a 63-year-old male with a diagnosis of hypertension, hypothyroidism, renal cell carcinoma stage IV status post left nephrectomy, locally advanced pancreatic adenocarcinoma status post Whipple procedure, status post adjuvant chemotherapy last dose was November 2017. Patient also has diagnosis of diabetes after the Whipple's procedure which is managed by an insulin pump. The patient said he was out in the [place] and playing golf outside over the past few days and was feeling fine however today he began to feel weak and had fevers and chills. He denies having a cough, denies dysuria, no diarrhea, denies any known recent sick contacts. Given the patient's history he came into the emergency department for evaluation and care after having fevers. Past medical history hypertension, hypothyroidism, renal cell carcinoma stage IV status post left nephrectomy, locally advanced pancreatic adenocarcinoma status post Whipple procedure, status post adjuvant chemotherapy last dose November 2017. Diabetes diagnosed after the Whipple's procedure. Surgical history left nephrectomy, status post Whipple's procedure, patient has also had a left hip replacement as well as a surgery on his right knee in the past. Social history patient denies any history of tobacco use, no significant history of alcohol abuse. Family history noncontributory DS: Diagnosis - Discharge Diagnosis (1) SIRS (systemic inflammatory response syndrome) Status: Acute (2) Hx of renal cell cancer Status: Acute (3) History of pancreatic cancer Status: Acute (4) Hypertension Status: Acute (5) Cephalgia Status: Acute DS: Medications - Discharge Medications Prescriptions: levofloxacin 750 mg PO DAILY 14 Days #14 tab DS: Summary Hospital Course: This patient is a 63-year-old male with a diagnosis of hypertension, hypothyroidism, renal cell carcinoma stage IV status post left nephrectomy, locally advanced pancreatic adenocarcinoma status post Whipple procedure, status post adjuvant chemotherapy last dose was November 2017. Patient also has diagnosis of diabetes after the Whipple's procedure which is managed by an insulin pump. The patient said he was out playing golf outside over the past few days and was feeling fine however day of admit he began to feel weak and had fevers and chills. He denied having a cough, dysuria, no diarrhea, no known recent sick contacts. Patient was admitted, fever was 103 and WBC 10. Because of immunocompromise state and a splenectomy, cultures were obtained, patient was started empiric antibiotics he was given aggressive fluid resuscitation. UA was negative. Chest x-ray did not reveal any acute findings. Blood cultures came back positive for gram-negative rods and eventually Ecoli in blood, infectious disease was consulted. Patient had a port placed when he had chemotherapy. He also complained of some mild epigastric discomfort prior to coming to hospital. CT of the abdomen done shows surgical changes, some gastritis and jejunitis that was nonspecific. Patient was continue on antibiotics until sensitivity was back. Because of concern with the border being the source of infection, his oncologist at the [facility] was contacted. Case was discussed with Dr. Frederick's PA at [facility]. If needed, it was okay to remove port. Patient had completed chemo treatment and was on surveillance twice a year. We also obtained records from [facility], patient had had an abdominal MRI completed in March. We compared both studies. Interventional radiology was consulted and patient had port removed on 08/02. Sensitivity came back, patient was started on p.o. antibiotics which he tolerated well. Patient managed his diabetes with his pump , his blood glucose remained stable. He was continued on Creon for history of indigestion and diarrhea. He had no further GI discomfort. He tolerated diet well. His renal function remained stable, considering history of left nephrectomy. His BMP was followed. Initially he was noted hypokalemic, his olmesartan was held. His blood pressure was initially controlled with Norvasc, after potassium stabilized he was restarted on ARB. Patient tolerated port removal well, he remained afebrile. Infectious disease cleared for discharge. Patient was discharged home in stable condition. - Time Spent with Patient Total time spent providing and/or coordinating discharge services: 35 minutes Greater than 30 minutes - Quality: VTE Deep Vein Thrombosis/Pulmonary Embolism Present on Admission: No Exam Vital signs: Vital Signs 08/01/18 20:00 08/01/18 23:50 08/02/18 00:00 Temperature 98.5 F 98.8 F Pulse Rate 63 60 48 L Respiratory Rate 16 16 Blood Pressure 135/71 129/69 Pulse Oximetry 95 94 L 08/02/18 04:00 08/02/18 08:00 08/02/18 09:00 Temperature 98.2 F 97.9 F Pulse Rate 50 L 49 L 50 L Respiratory Rate 16 18 Blood Pressure 139/75 129/75 Pulse Oximetry 97 96 08/02/18 12:00 Temperature 97.9 F Pulse Rate 96 H Respiratory Rate 18 Blood Pressure 124/72 Pulse Oximetry 97 Intake & Output 08/01/18 08/02/18 08/02/18 18:59 06:59 18:59 Intake Total 2870 / 2870 580 / 580 50 / 50 Output Total 875 / 875 500 / 500 Balance 1994 80 / 80 50 / 50 Weight 63 kg Intake: IV 2150 / 2150 100 / 100 50 / 50 NS Inj 1,000 ML @ 75 mls/hr IV. 1800 / 1800 CONT .[id number] [facility] Rx#:[id number] Zosyn 3.375 GM Premix 50 ML @ 100 / 100 100 / 100 50 / 50 100 mls/hr IV.SIG Q6H [facility] Rx#: [id number] Vancomycin Inj 1,000 MG In NS 250 / 250 Inj 250 ML @ 250 mls/hr IV.SIG Q24H [facility]ANG Rx#:[id number] Oral 720 / 720 480 / 480 Output: Urine 875 / 875 500 / 500 Other: Date of Last Bowel Movement 07/31/18 08/01/18 # Bowel Movements 0 1 Weight On Admission 63 kg Results Procedures completed during hospitalization: PAC removal 08/02/2018 Labs on day of discharge: Labs from last 24 hours 08/02/18 08/02/18 13:11 08:09 PT 10.5 INR 1.0 APTT 26.4 Sodium 141 Potassium 4.0 Chloride 105 Carbon Dioxide 27.1 Anion Gap 9 BUN 19 H Creatinine 0.91 Estimated GFR 84 L Random Glucose 120 H Calcium 8.5 Total Bilirubin 0.6 Direct Bilirubin 0.2 Indirect Bilirubin 0.4 AST 92 H ALT 76 Alkaline Phosphatase 82 Total Protein 6.3 L D Albumin 3.0 L Preliminary micro results at discharge 07/31/18 12:20 Aerobic Blood Culture - Preliminary Blood - Peripheral No growth in 2 days Anaerobic Blood Culture - Preliminary No growth in 2 days 07/31/18 12:27 Aerobic Blood Culture - Preliminary Blood - Peripheral No growth in 2 days Anaerobic Blood Culture - Preliminary No growth in 2 days - Impressions ITS Impressions Chest X-Ray 07/30/18 13:14 CONCLUSION: Right IJ [id number] catheter. Lungs are clear. Abdomen/Pelvis CT 08/01/18 00:00 CONCLUSION: 1. Surgical changes of previous Whipple procedure. There is atrophy and ductal dilatation of the pancreatic remnant and also mild dilatation of the common bile duct. These findings may be residual rather than acute. No well-defined/ measurable mass seen. I also don't see any convincing evidence of metastatic disease. 2. Apparent gastritis and jejunitis, nonspecific but presumably infectious or inflammatory. Inflammatory changes include the anastomosis. No associated obstruction. 3. Left nephrectomy without recurrent mass. Also an apparent previous splenectomy. 4. Nonobstructing stone and small, benign-appearing cysts of the right kidney. Tube Removal 08/02/18 00:00 CONCLUSION: 1. Uncomplicated Permcath removal. Discharge Plan - Discharge Disposition Patient Disposition: Discharge Home - Discharge Condition Condition: Stable - Discharge Order Discharge Orders: Discharge Order (Routine); Ordered 08/02/18 Ordered By: Sasha Evans - Discharge Details Anticipated Discharge Date: 08/02/18 Discharge Comment: discharge at 1800 after he eats and has taken first dose of Levaquin - Physicians Team Primary Care Provider: Rajani Suggs Attending Provider: Nataliya Jain Other Providers: Ciara Chapa MD
== END 2018-08-02 17:49 | disposition home or self-care (01) ==
LOC: NEPC 12:43 → INTOOBSV 15:41 → NEDA 15:41 → N04 18:14
PROVIDERS: ADMIT Family Medicine; ATTEND Family Medicine